=== PATIENT | male | born 1980 ===

== ENCOUNTER 2017-02-23 02:04 | Emergency (ER) | payer OTHER ==
[2017-02-23 02:17] VITALS: BP 150/100; PULSE 103; RESP 18; TEMP 97.7; O2SAT 97
--- NOTE | 2017-02-23 03:01 | ED PDOC ---
HPI: SOB/CHF/COPD Time Seen by Provider: 02/23/17 02:10 Chief Complaint (Nursing): Chest Pain Chief Complaint (Provider): Cough History Per: Patient Additional Complaint(s): 36 yo male, no PMH, presents to ED for evaluation Past Medical History Reviewed: Nursing Documentation, Vital Signs Vital Signs: Last Vital Signs Temp 97.7 F 02/23/17 02:10 Pulse 103 H 02/23/17 02:10 Resp 18 02/23/17 02:10 BP 150/100 H 02/23/17 02:10 Pulse Ox 97 02/23/17 02:10 - Medical History PMH: Arthritis Denies: Chronic Kidney Disease - Family History Family History: States: No Known Family Hx - Living Arrangements Living Arrangements: With Family - Social History Current smoker - smoking cessation education provided: No Alcohol: Social Drugs: Denies - Home Medications Home Medications: Ambulatory Orders Medication Instructions Recorded Ibuprofen [Motrin] 600 mg PO Q8 #20 tab 03/05/15 Methylprednisolone [Medrol Dose 4 mg PO DAILY #21 mg 02/23/17 Pack (21 tabs)] Promethazine HCl/Codeine 5 ml PO HS #80 ml 02/23/17 [Prometh-Codein 6.25-10 mg/5 ml] - Allergies Allergies/Adverse Reactions: Allergies Allergy/AdvReac Type Severity Reaction Status Date / Time No Known Allergies Allergy Verified 02/23/17 02:10 Review of Systems ROS Statement: Except As Marked, All Systems Reviewed And Found Negative ENT: Positive for: Nose Congestion Respiratory: Positive for: Cough Physical Exam - Reviewed Nursing Documentation Reviewed: Yes Vital Signs Reviewed: Yes - Physical Exam Appears: Positive for: Well, Non-toxic, No Acute Distress Head Exam: Positive for: ATRAUMATIC, NORMAL INSPECTION, NORMOCEPHALIC Skin: Positive for: Normal Color, Warm, DRY Eye Exam: Positive for: EOMI, Normal appearance, PERRL ENT: Positive for: Normal ENT Inspection Neck: Positive for: Normal, Painless ROM Cardiovascular/Chest: Positive for: Regular Rate, Rhythm Respiratory: Positive for: CNT, Normal Breath Sounds Gastrointestinal/Abdominal: Positive for: Normal Exam, Bowel Sounds, Soft Back: Positive for: Normal Inspection Extremity: Positive for: Normal ROM Neurologic/Psych: Positive for: Alert, Oriented - ECG O2 Sat by Pulse Oximetry: 97 Medical Decision Making Medical Decision Making: Repeat pulse: 88 BP: 138/82 Pt educated on typical URI like symptoms, as well as common duration. Advised to take medications as directed. Return to ED with any concerns. Disposition - Clinical Impression Clinical Impression: Upper respiratory infection - Patient ED Disposition Is Patient to be Admitted: No - Disposition Disposition: Routine/Home Disposition Time: 05:31 Condition: STABLE - POA Present On Arrival: None
== END 2017-02-23 03:07 | disposition home or self-care (01) ==
LOC: H.ER 02:04
DX: J06.9 Acute upper respiratory infection, unspecified (principal)

== ENCOUNTER 2017-07-25 18:08 | Emergency (ER) | payer OTHER ==
[2017-07-25 18:14] VITALS: BP 145/82; PULSE 79; RESP 18; TEMP 98.6; O2SAT 99
--- NOTE | 2017-07-25 18:31 | ED PDOC ---
HPI: Nose Bleed Time Seen by Provider: 07/25/17 18:21 Chief Complaint (Nursing): ENT Problem Chief Complaint (Provider): Nose Bleeed History Per: Patient History/Exam Limitations: no limitations Onset/Duration Of Symptoms: Hrs (x1 hour prior to arrival) Current Symptoms Are (Timing): Gone Now Location Of Bleeding: Both Nares Symptoms Have Been: Episodic Associated Symptoms: denies: Lightheadedness, Nasal Congestion Anticoagulant/Antiplatlet Use?: No Recent Aspirin Use: No Additional Complaint(s): Mitch Pulido, a 36 year old male, presents to the ED complaining of a nose bleed that occurred 1 hour prior to arrival. The patient reports that bleed lasted for 10-15 minutes. He states that he has had similar symptoms in the past and like today they resolved spontaneously but he still wanted to come and get checked out. Patient also notes that during the nose bleeds he also spits up blood. Denies dizziness, nose trauma. PMD: Samy Hahn Past Medical History Reviewed: Historical Data, Nursing Documentation, Vital Signs Vital Signs: Last Vital Signs Temp 98.6 F 07/25/17 18:10 Pulse 79 07/25/17 18:10 Resp 18 07/25/17 18:10 BP 145/82 07/25/17 18:10 Pulse Ox 99 07/25/17 18:10 - Medical History PMH: Arthritis Denies: Chronic Kidney Disease - Surgical History Surgical History: No Surg Hx - Family History Family History: States: Unknown Family Hx - Home Medications Home Medications: Ambulatory Orders Medication Instructions Recorded Ibuprofen [Motrin] 600 mg PO Q8 #20 tab 03/05/15 Methylprednisolone [Medrol Dose 4 mg PO DAILY #21 mg 02/23/17 Pack (21 tabs)] Promethazine HCl/Codeine 5 ml PO HS #80 ml 02/23/17 [Prometh-Codein 6.25-10 mg/5 ml] - Allergies Allergies/Adverse Reactions: Allergies Allergy/AdvReac Type Severity Reaction Status Date / Time No Known Allergies Allergy Verified 02/23/17 02:10 Review of Systems ROS Statement: Except As Marked, All Systems Reviewed And Found Negative ENT: Positive for: Other (Nose bleed) Physical Exam - Reviewed Nursing Documentation Reviewed: Yes Vital Signs Reviewed: Yes - Physical Exam Appears: Positive for: Non-toxic, No Acute Distress Head Exam: Positive for: ATRAUMATIC, NORMAL INSPECTION, NORMOCEPHALIC Skin: Positive for: Normal Color, Warm, Dry. Negative for: Rash Eye Exam: Positive for: Normal appearance, EOMI, PERRL. Negative for: Nystagmus ENT: Positive for: Normal ENT Inspection (No septal hematoma; throat normal, no evidence of blood.), Other (mild swelling to right nostril.). Negative for: Nasal Congestion, Tonsillar Exudate, Tonsillar Swelling - ECG O2 Sat by Pulse Oximetry: 99 (RA) Pulse Ox Interpretation: Normal Medical Decision Making Medical Decision Makin Initial Impression 36 year old male presenting with nose bleed Initial Plan: * Reevaluation 1829 Patient will be discharged with nasal spray and instructed to follow up with PMD. Scribe Attestation Documented by Sue Sequeira acting as a scribe for Nhung Angulo PA-C. Scribe Attestation All medical record entries made by the Scribe were at my direction and personally dictated by me. I have reviewed the chart and agree that the record accurately reflects my personal performance of the history, physical exam, medical decision making, and the department course for this patient. I have also personally directed, reviewed, and agree with the discharge instructions and disposition. Disposition - Clinical Impression Clinical Impression: Nosebleed - Patient ED Disposition Is Patient to be Admitted: No Counseled Patient/Family Regarding: Diagnosis, Need For Followup - Disposition Disposition: Routine/Home Disposition Time: 18:30 Condition: STABLE Additional Instructions: please followup with an Ear Nose and Throat Doctor. Instructions: Nosebleed (ED) Forms: [facility] (Hong [place]er) - POA Present On Arrival: None
== END 2017-07-25 18:51 | disposition home or self-care (01) ==
LOC: H.ER 18:08
DX: R04.0 Epistaxis (principal)

== ENCOUNTER 2018-08-01 03:15 | Emergency (ER) | payer OTHER ==
[2018-08-01 03:30] VITALS: BMI 32.3
--- NOTE | 2018-08-01 03:44 | ED PDOC ---
Upper Extremity Pain/Injury Time Seen by Provider: 08/01/18 03:29 Chief Complaint (Nursing): Finger,Hand,&Wrist Chief Complaint (Provider): Finger,Hand,&Wrist History Per: Patient History/Exam Limitations: no limitations Onset/Duration Of Symptoms: Days (x4) Current Symptoms Are (Timing): Still Present Additional Complaint(s): 37 y/o male with a PMHx of arthritis presents to the ED for evaluation of inflammation to the distal tip of the left third digit, onset 4 days ago. Patient reports of being prescribed antibiotics, of which he has been taking, with no relief. Patient reports he has not done warm soaks and inflammation is getting worse. Patient states inflammation is now associated with redness to the finger. Denies fever and chills. PMD: Samy Lake Past Medical History Reviewed: Historical Data, Nursing Documentation, Vital Signs Vital Signs: Last Vital Signs Temp 98.2 F 08/01/18 03:31 Pulse 119 H 08/01/18 03:31 Resp 16 08/01/18 03:31 BP 145/86 08/01/18 03:31 Pulse Ox 96 08/01/18 03:31 - Medical History PMH: Arthritis Denies: Chronic Kidney Disease - Surgical History Surgical History: No Surg Hx - Family History Family History: States: Unknown Family Hx - Home Medications Home Medications: Ambulatory Orders Medication Instructions Recorded Ibuprofen [Motrin] 600 mg PO Q8 #20 tab 03/05/15 Methylprednisolone [Medrol Dose 4 mg PO DAILY #21 mg 02/23/17 Pack (21 tabs)] Promethazine HCl/Codeine 5 ml PO HS #80 ml 02/23/17 [Prometh-Codein 6.25-10 mg/5 ml] Ibuprofen [Motrin Tab] 600 mg PO Q6 #30 tab 08/01/18 - Allergies Allergies/Adverse Reactions: Allergies Allergy/AdvReac Type Severity Reaction Status Date / Time No Known Allergies Allergy Verified 08/01/18 03:30 Review of Systems ROS Statement: Except As Marked, All Systems Reviewed And Found Negative Musculoskeletal: Positive for: Hand Pain (left third digit inflammation) Physical Exam - Reviewed Nursing Documentation Reviewed: Yes Vital Signs Reviewed: Yes - Physical Exam Appears: Positive for: No Acute Distress Extremity: Positive for: Other (Swelling to the distal aspect of the left third digit with palpable fluctuance at the tip and minimal erythema. ) - ECG O2 Sat by Pulse Oximetry: 96 (RA) Pulse Ox Interpretation: Normal Medical Decision Making Medical Decision Making: Time: 345 A/P: 37 y/o male with paronychia -- Will need incision and drainage --Advised warm soaks and to finish ABx --Stated to patient to return if not better in 2 - 3 days Scribe Attestation: Documented by Jayro Santoro, acting as a scribe for Mando Burnham MD. Provider Scribe Attestation: All medical record entries made by the Scribe were at my direction and personally dictated by me. I have reviewed the chart and agree that the record accurately reflects my personal performance of the history, physical exam, medical decision making, and the department course for this patient. I have also personally directed, reviewed, and agree with the discharge instructions and disposition. Procedures - Incision and Drainage Blade Size: 11 I & D Procedure: betadine prep Progress: -Injected with lidocaine 2%, 3mL -Nailbed lifted and 3cc's of breanne pus drained -Wound dressed and cleaned Disposition - Clinical Impression Clinical Impression: Paronychia - Disposition Referrals: Samy Lake MD [Staff Provider] - Disposition: Routine/Home Disposition Time: 03:45 Condition: STABLE Prescriptions: Ibuprofen [Motrin Tab] 600 mg PO Q6 #30 tab Instructions: Paronychia Forms: [facility] (German)
[2018-08-01] MEDS ORDERED: Lidocaine 2% MPF (5 ml) Inj ONE (03:45)
[2018-08-01 04:25] VITALS: RESP 18
[2018-08-01 06:47] VITALS: BP 128/78; PULSE 94; TEMP 98.3; O2SAT 97
== END 2018-08-01 05:10 | disposition home or self-care (01) ==
LOC: H.ER 03:15
DX: L03.012 Cellulitis of left finger (principal)